=== PATIENT | female | born 1985 | race Caucasian/White ===

== ENCOUNTER 2022-11-26 15:31 | Emergency (ER) | payer BC, SELFPAY ==
[2022-11-26 15:40] VITALS: BP 121/77; PULSE 96; RESP 16; TEMP 37; O2SAT 100
--- NOTE | 2022-11-26 15:41 | ED.URI ---
HPI - URI/Sore Throat General Chief Complaint: Upper Respiratory Infection Stated Complaint: Shortness of breath;Fever Time Seen by Provider: 11/26/22 15:50 Source: patient, RN notes reviewed and old records reviewed Mode of arrival: ambulatory Limitations: no limitations History of Present Illness HPI Narrative: 37-year-old female presents to the [facility] with complaints of fever, shortness of breath, sore throat for 6 days. Reports fever the 1st 3 days. Daughter had similar symptoms and is better. Has taken Tylenol for fever. Reports taking cold medicine. Related Data Allergies Allergy/AdvReac Type Severity Reaction Status Date / Time No Known Allergies Allergy Unverified 07/15/18 15:22 Review of Systems Review of Systems: All systems reviewed & are unremarkable except as noted in HPI and below Constitutional: Constitutional: Reports as per HPI and Reports fatigue Eyes: Eyes: Reports no additional eye complaints ENT: Reports as per HPI and Reports sore throat Cardiovascular: Cardiovascular: Reports no additional cardiovascular complaints, Denies chest pain and Denies dyspnea Respiratory: Respiratory: Reports no additional respiratory complaints, Denies chest congestion, Denies cough and Denies dyspnea Gastrointestinal: Gastrointestinal: Reports no additional gastrointestinal complaints, Denies abdominal pain, Denies nausea and Denies vomiting Musculoskeletal: Musculoskeletal: Reports no additional musculoskeletal complaints Integumentary/Breasts: Skin/Breast: Reports system reviewed and no additional complaints, except as docu Neurologic: Reports system reviewed and no additional complaints, except as documented Psychiatric: Psychiatric: Reports no additional psychiatric complaints Allergic/Immunologic: Allergic/Immunologic: Reports no additional allergic/immunologic complaints PMFSH Comments At the time of my signature, I reviewed and agree with the nursing past medical, surgical, social, and family history. There is no relevant family history pertinent to the patient complaint. Exam Const: General: cooperative, healthy appearing, comfortable, no acute distress, well developed, alert and well nourished Nutritional Appearance: well nourished Orientation/consciousness: patient oriented x3 Limitations: no limitations HENMT: Head: normal to inspection Ears: hearing grossly normal bilaterally, external ears normal, TM's normal bilaterally and EAC's normal Face/Nose/Sinus: Normal external nose present, Normal nares present, Normal nasal mucous membranes and turbinates present, normal facial exam and face symmetric Face and sinus: normal facial exam and face symmetric Mouth: Yes Normal oral and palatal mucosa present, Yes lip normal and Yes moist mucous membranes Throat: posterior oropharynx normal, uvula midline and postnasal drainage Eyes: General: appearance normal, both eyes and all related structures Alignment and Position: alignment normal Periorbital: periorbital findings normal Pupils: Equal, round and reactive pupils present EOM: EOMs intact bilaterally Neck: Neck: normal visual inspection, full ROM, no lymphadenopathy and no meningeal signs Chest: Chest palpation & inspection: normal inspection of the chest Resp: Effort & Inspection: normal respiratory effort and able to speak in complete sentences Auscultation: clear to auscultation bilaterally, no crackles, no rales, no rhonchi and no wheezes Cardio: Rate: regular rate Rhythm: regular rhythm Back/Spine/Pelvis: Cervical Spine: cervical ROM normal Skin: General skin exam: normal color and no rashes or lesions noted Lesions: no lesions Rashes: no rashes Wounds: no wounds Neuro: General: patient oriented x3, gait normal, tone normal, moves all extremities and no meningeal signs Cranial nerves: Yes Equal, round and reactive pupils present Cognition (Neuro): normal cognition Speech: normal speech Gait exam (Neuro): Normal gait present Extre
== END 2022-11-26 16:10 | disposition home or self-care (01) ==
PROVIDERS: Emergency Provider Nurse Practitioner
DX: B34.9 Viral infection, unspecified (principal)
CPT/HCPCS: 87081; 87880; 99213; G0463

== ENCOUNTER 2022-12-16 15:09 | Emergency (ER) | payer BC, SELFPAY ==
[2022-12-16 15:40] VITALS: BP 116/94; PULSE 120; RESP 16; TEMP 37.4; O2SAT 100
--- NOTE | 2022-12-16 16:39 | ED.URI ---
HPI - URI/Sore Throat General Chief Complaint: Upper Respiratory Infection Stated Complaint: Congestion Source: patient and RN notes reviewed Mode of arrival: ambulatory Limitations: no limitations History of Present Illness HPI Narrative: [age] year old female presenting for complaint of sinus congestion and left ear pressure over the past few days and coughing for about 1 month. Denies shortness of breath, wheezing, nausea, vomiting, fevers or chills. Endorses sick family members in the house with similar symptoms. Taking [id number] medication without relief. MD elicited complaint: cough Related Data Allergies Allergy/AdvReac Type Severity Reaction Status Date / Time No Known Allergies Allergy Unverified 12/16/22 15:38 Review of Systems Review of Systems: CONSTITUTIONAL: Denies malaise, chills, sweats, fever EYES: Denies visual changes, redness, or discharge ENT: Reports rhinorrhea, congestion, otalgia, denies sore throat CARDIOVASCULAR: Denies chest pain, palpitations, edema RESPIRATORY: Reports cough, post nasal drainage. Denies dyspnea GASTROINTESTINAL: Denies abdominal pain, nausea, vomiting, diarrhea SKIN: Denies rash or itching MUSCULOSKELETAL: Denies myalgia NEUROLOGIC: Denies headache [facility] Past Medical History Medical History (Updated 12/16/22 @ 19:20 by Destiny Coats, [employer]IVER) No pertinent past medical history Exam Narrative: GENERAL: Mildly ill-appearing, nontoxic no acute distress. HEAD: Normocephalic EYES: PERRLA, conjunctivae clear ENT: Mucous membranes moist. Right tM pearly kinney with dull light reflex; left TM erythematous, bulging and intact, canal not erythematous. No drainage no tragal tenderness. Oropharynx normal without lesions or exudate, no drooling, no hoarseness, no trismus, uvula midline. NECK: Supple. No lymphadenopathy CHEST: Clear to auscultation, breath sounds equal. No wheezing, rhonchi, rales, or stridor. No respiratory distress, speaks in full sentences. HEART: Regular rate and rhythm. No murmur heard. SKIN: Warm, dry, no rash. NEURO: Alert and oriented x3. PSYCH: Normal mood and affect Course Course Emergency Course: Patient is aware of diagnosis, understands and agrees to treatment plan. Anticipatory guidance given. Patient agrees to follow-up as directed and is aware of reasons to seek care at the emergency department. Portions of this record may have been created with voice recognition software Level of Care: Express Care Visit Vital Signs Vital signs: Vital Signs Temperature 99.3 F 12/16/22 15:40 Pulse Rate 120 H 12/16/22 15:40 Respiratory Rate 16 12/16/22 15:40 Blood Pressure 116/94 H 12/16/22 15:40 Pulse Oximetry 100 12/16/22 15:40 Temperature 99.3 F 12/16/22 15:40 Pulse Rate 120 H 12/16/22 15:40 Respiratory Rate 16 12/16/22 15:40 Blood Pressure 116/94 H 12/16/22 15:40 Pulse Oximetry 100 12/16/22 15:40 reviewed MDM - URI/Sore Throat MDM Narrative Medical decision making narrative: Discussed physical exam findings consistent with left AOM. Advised supportive measures and signs/symptoms to go to the ER. Pt is appropriate for outpt treatment and f/u. Differential Diagnosis Differential diagnosis: Likely upper respiratory infection, otitis media, sinusitis, viral infection and bronchitis Discharge Plan Discharge Clinical Impression: Otitis media Qualifiers: Otitis media type: suppurative Chronicity: acute Laterality: left Recurrence: non-recurrent Spontaneous tympanic membrane rupture: without spontaneous rupture Qualified Code(s): H66.002 - Acute suppurative otitis media without spontaneous rupture of ear drum, left ear Patient Disposition: Home, Self-Care Condition: Stable Instructions: Antibiotic Form, Ear Infection (ED) Additional Instructions: Take antibiotics as directed. Recommend antihistamine such as Benadryl, Zyrtec or Aury for sinus congestion Flonase nasal spray,
== END 2022-12-16 16:47 | disposition home or self-care (01) ==
PROVIDERS: Emergency Provider Nurse Practitioner Family
DX: H66.002 Acute suppurative otitis media without spontaneous rupture of ear drum, left ear (principal)
CPT/HCPCS: 99213; G0463

== ENCOUNTER 2023-07-19 17:20 | Emergency (ER) | payer OTHER, SELFPAY ==
--- NOTE | 2023-07-19 17:24 | ED.SKABFB ---
HPI - Skin/Abscess/Foreign Bdy General Chief complaint: Upper Respiratory Infection Stated complaint: lump on right side of face Source: patient and RN notes reviewed Mode of arrival: ambulatory Limitations: no limitations History of Present Illness HPI narrative: Patient is a 38-year-old female who presents to the [facility] with complaints fever and sore throat starting on Monday. Patient states that she had a sore throat and headache on Monday that has continued. She states that she had a fever as high as 102? F on Monday. She has also been experiencing some mild nausea with emesis x1 which occurred on Monday. She denies abdominal pain or vomiting. Patient also states that she has had a frequent nonproductive cough and nasal congestion for the past week. She denies chest pain or shortness of breath. Unsure of any known sick contacts. Related Data Home Medications Medication Instructions Recorded Confirmed No Home Medications 07/19/23 07/19/23 Allergies Allergy/AdvReac Type Severity Reaction Status Date / Time No Known Allergies Allergy Unverified 07/19/23 17:25 Review of Systems Review of Systems: CONSTITUTIONAL: Reports fever and chills. EYES: Denies visual changes, redness, or discharge. ENT: Denies otalgia. Reports sore throat. Reports nasal congestion. CARDIOVASCULAR: Denies chest pain, palpitations, or edema. RESPIRATORY: Reports cough but denies dyspnea. GASTROINTESTINAL: Denies abdominal pain, nausea, vomiting, or diarrhea. GENITOURINARY: Denies dysuria or hematuria. SKIN: Denies rash or itching. MUSCULOSKELETAL: Denies back pain, joint pain, or myalgia. NEUROLOGIC: Reports headache but denies numbness or weakness. Pertinent positives per HPI. PMFSH Past Medical History Medical History No pertinent past medical history Comments At the time of my signature, I reviewed and agree with the nursing past medical, surgical, social, and family history. There is no relevant family history pertinent to the patient complaint. Exam Narrative: GENERAL: This is a well-nourished, well-developed patient, in no apparent distress. HEAD: normocephalic, atraumatic. EYES: Sclera clear/white. Vision is grossly intact. EARS: External ears normal. Hearing grossly intact. NOSE: External nose normal with no obvious nasal discharge, nares without redness, no rhinorrhea. THROAT: Mucous membranes moist. Oropharyngeal erythema without exudate or ulceration. NECK: Neck supple, cervical lymphadenopathy present on right. CARDIOVASCULAR: Regular rate and rhythm without murmurs, gallops, or rubs. RESPIRATORY: Clear to auscultation. Breath sounds equal bilaterally. No wheezes, rales, or rhonchi. GASTROINTESTINAL: Abdomen soft, non-tender, nondistended. Bowel sounds are active. No hepato-splenomegaly, or palpable masses. No guarding. SKIN: warm, intact with no suspicious lesions or rash, good texture and turgor. NEURO: awake, alert, and oriented to person, place and time. There were no obvious focal neurologic abnormalities. Course Course Level of Care: Express Care Visit Vital Signs Vital signs: Vital Signs Temperature 98.4 F 07/19/23 17:34 Pulse Rate 74 07/19/23 17:34 Respiratory Rate 16 07/19/23 17:34 Blood Pressure 122/76 07/19/23 17:34 Pulse Oximetry 100 07/19/23 17:34 Temperature 98.4 F 07/19/23 17:34 Pulse Rate 74 07/19/23 17:34 Respiratory Rate 16 07/19/23 17:34 Blood Pressure 122/76 07/19/23 17:34 Pulse Oximetry 100 07/19/23 17:34 Reviewed MDM - Skin/Abscess/Foreign Bdy MDM Narrative Medical decision making narrative: Rapid strep is negative in the office; however we will send to the lab for confirmation; there is a small percentage chance that it can come back positive; if it is, we will call you in 2-3days; and your prescription will be call in to your pharmacy. However, there is NO indication for anti
[2023-07-19 17:34] VITALS: BP 122/76; PULSE 74; RESP 16; TEMP 36.9; O2SAT 100
== END 2023-07-19 18:27 | disposition home or self-care (01) ==
PROVIDERS: Emergency Provider Nurse Practitioner
DX: J02.9 Acute pharyngitis, unspecified (principal)
CPT/HCPCS: 36416; 86308; 87081; 87880; 99213; G0463

== ENCOUNTER 2024-12-14 10:16 | Emergency (ER) | payer OTHER, SELFPAY ==
[2024-12-14 10:27] VITALS: BP 120/75; PULSE 79; RESP 16; TEMP 36.8; O2SAT 100
--- NOTE | 2024-12-14 10:57 | ED.SKABFB ---
HPI - Skin/Abscess/Foreign Bdy General Chief complaint: Skin/Abscess/Foreign Body Stated complaint: RASH/LIP SWELLING Time Seen by Provider: 12/14/24 10:43 Source: patient and RN notes reviewed Mode of arrival: ambulatory Limitations: no limitations History of Present Illness HPI narrative: 39-year-old female patient presents today complaining of severe acne to her face x2 months that has been waxing and waning in severity. Two days ago she noted some larger lesions to the right cheek and right tragus that are swollen and warm. This morning she noted a larger area to the right upper lip that has become swollen. She is concerned she may need some antibiotics and presented today for evaluation. Patient states due to insurance concerns she has been unable to make an appointment with a exterminator helper. She did see her OBGYN on 10/28/2024 regarding these concerns and was started on some oral control for her acne, which she believes may be helping minimally. She has an appointment in January for follow-up. Patient does have history of acne and was on Accutane when in high school. Related Data Allergies Allergy/AdvReac Type Severity Reaction Status Date / Time No Known Allergies Allergy Verified 12/14/24 10:27 [facility] Past Medical History Medical History No pertinent past medical history Family History Family History Mother Heart disease Social History Social History Smoking status: Never smoker Alcohol intake: current Alcohol use details: occasional Substance use: never Substance use type: does not use Current Housing: Decline to Answer Concerned About Future Housing: Decline to Answer Difficulty Paying Gas/Electric Bills: Decline to Answer Difficulty Paying for Meds: Decline to Answer Currently Unemployed: Decline to Answer Education: Decline to Answer Difficulty w/ Childcare or Family Care: Decline to Answer Living arrangements: with family Occupation/Education: occupation Gender identity (if verbalized by the patient): Female Sexual Orientation (if Verbalized by the Patient): Straight or Heterosexual Comments At time of signature, I have reviewed and agree with nursing past medical, surgical, social and family history unless otherwise noted. Please see nursing chart for further information. There is no relevant family history pertinent to the presenting complaint Exam Narrative: GENERAL: Well-appearing, well-nourished, and in no acute distress. HEAD: Normocephalic, atraumatic. EYES: EOMI. No redness or drainage. Conjunctivae normal. ENT: Mucous membranes pink and moist. NECK: Normal AROM. CHEST: No respiratory distress. EXTREMITIES: Normal range of motion. No edema. SKIN: Warm, dry. Capillary refill normal. Normal skin turgor. Scattered open and closed comedones over the facial surface. Large red pustules in a cluster to the right cheek that are quite swollen and tender as well as 1 large cluster to the right tragus. NEURO: No focal deficits. Alert and oriented x3. Gait steady. PSYCH: Normal affect. No signs of depression or anxiety. Course Course Level of Care: Express Care Visit Vital Signs Vital signs: Vital Signs Temperature 98.2 F 12/14/24 10:27 Pulse Rate 79 12/14/24 10:27 Respiratory Rate 16 12/14/24 10:27 Blood Pressure 120/75 12/14/24 10:27 Pulse Oximetry 100 12/14/24 10:27 Temperature 98.2 F 12/14/24 10:27 Pulse Rate 79 12/14/24 10:27 Respiratory Rate 16 12/14/24 10:27 Blood Pressure 120/75 12/14/24 10:27 Pulse Oximetry 100 12/14/24 10:27 Reviewed MDM - Skin/Abscess/Foreign Bdy MDM Narrative Medical decision making narrative: 39-year-old female patient presents today complaining of severe acne to her face x2 months that has been waxing and waning in severity. Two days ago she noted some larger lesions to the right cheek and right tragus that are swollen and warm. This morning she noted a larger area to the right upper lip that has become swollen. She is concerned she may need some antibiotics and presented today for evaluation. Patient states due to insurance concerns she has been unable to make an appointment with a exterminator helper. She did see her OBGYN on 10/28/2024 regarding these concerns and was started on some oral control for her acne, which she believes may be helping minimally. Upon exam, Scattered open and closed comedones over the facial surface. Large red pustules in a cluster to the right cheek that are quite swollen and tender as well as 1 large cluster to the right tragus. Patient will be started on a 2 week course of doxycycline. She is intermittently using Benzoyl Peroxide as instructed by her OB as well. She was offered a prescription for spironolactone at her last OBGYN visit, but patient states that she would have to pay for [id number] due to her insurance so she had to decline. Patient agrees with plan today. Vital signs stable. Anticipatory guidance given. Differential Diagnosis Differential diagnosis: Likely abscess of skin or subcutaneous tissue, cellulitis, impetigo, contact dermatitis and other (Acne) Critical Care Time Critical Care Time Critical Care Time: No Discharge Plan Discharge Clinical Impression: Acne Qualifiers: Acne type: unspecified acne Qualified Code(s): L70.9 - Acne, unspecified Patient Disposition: Home Condition: Stable Instructions: Antibiotic Form Additional Instructions: Please take the doxycycline as prescribed. Follow-up with your OBGYN as scheduled. Patient Language: Nepali Prescriptions: New doxycycline hyclate 100 mg tablet 100 mg PO BID 14 Days Qty: 28 0RF No Action drospirenone-ethinyl estradiol [Anna (28)] 3-0.03 mg tablet 1 tablet PO DAILY Qty: 84 3RF Follow-up/Referrals: PHYSICIAN,ROAD ADVISOR [Primary Care Provider, Internal Medicine] Time of Disposition: 11:06
== END 2024-12-14 11:13 | disposition home or self-care (01) ==
PROVIDERS: Emergency Provider Nurse Practitioner
DX: L70.9 Acne, unspecified (principal)
CPT/HCPCS: 99213; G0463